=== PATIENT | female | born 1980 | race Caucasian/White ===

== ENCOUNTER → 2022-07-09 | Outpatient (CLI) | payer MEDICAID, OTHER ==
[~2022-07-09] VITALS: Ht 175.3 cm; Wt 98.6 kg
[~2022-07-09] MED LIST: LIDOCAINE 1% INJ 10 ML VIAL INJ ONE
--- NOTE | 2022-07-09 12:05 | Diagnostic Imaging Report ---
INDICATION: A right lobe thyroid nodule. Patient presents for ultrasound guided fine-needle aspiration. Patient brought to the procedure room placed on table in the supine position. Ultrasound imaging of the right neck was performed to evaluate appropriate entry site. The right neck was then prepped and draped in usual sterile fashion. Small amount of 1% lidocaine was utilized for local anesthesia. A total of 5 passes were made into the dominant solid nodule in the right aspect of the isthmus utilizing 25-gauge needles and fine-needle aspiration technique. Hemostasis was obtained. Patient tolerated procedure well and left the department in stable condition. IMPRESSION: Successful ultrasound-guided fine-needle aspiration of the dominant solid nodule in the right aspect of the isthmus. Pathology results are currently pending. Dictated by: Dictated on workstation # [id number]
== END ==
LOC: RAD 10:53
PROVIDERS: ATTEND Otolaryngology
DX: E04.2 Nontoxic multinodular goiter (principal)